=== PATIENT | male | born 2000 | race Caucasian/White ===

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

== ENCOUNTER 2022-12-19 14:41 | Emergency (ER) | payer OTHER ==
[2022-12-19 14:44] VITALS: BP 137/74; PULSE 66; RESP 16
--- NOTE | 2022-12-19 15:16 | ED ---
Skin/Abscess/FB HPI - General Chief complaint: Skin/Abscess/Foreign Body Stated complaint: rash on abdomen Time Seen by Provider: 12/19/22 14:49 Source: patient Mode of arrival: ambulatory Limitations: no limitations - History of Present Illness Initial comments: Patient is a 22-year-old male presenting to the emergency room with complaints of a rash on his right lower abdominal region and a small rash area on his right flank which developed approximately 1 week ago. He reports that itchy in nature and states that when he itches it does burn. He does report that it started out smaller on his abdomen and has grown in size. He has not utilized any medications to help treat the rash. He is attempting to avoid itching the area. He did originally believe that it was due to a change in soaps but reports that despite personal-care product stability the rash persists. He denies any wounds, bites or lesions that precipitated the rash. He denies any rash to any other location, shortness of breath, chest pain, fevers or chills. He denies any other persons in the home with a rash. He has no significant past medical history. - Related Data Home Medications Medication Instructions Recorded Confirmed Sulfamethox-Tmp 800-160Mg [Bactrim 1 tab PO Q12HR 05/25/18 05/25/18 Ds] Previous Rx's Medication Instructions Recorded Mupirocin 2% Oint [Bactroban 2% 1 applic TOPICAL TID #22 gm 05/22/18 Oint] Cephalexin [Keflex] 500 mg PO Q8H 10 Days cap 05/25/18 Sulfamethox-Tmp 800-160Mg [Bactrim 2 tab PO Q12HR 10 Days tab 05/25/18 DS 800-160 mg] Amoxic-Pot Clav 875-125Mg 1 tab PO BID 7 Days #14 tab 11/23/22 [Augmentin 875-125] Nystatin/Triamcin 1 applic TOPICAL BID #30 gram 12/19/22 [Nystatin-Triamcinolone Cream] Allergies Allergy/AdvReac Type Severity Reaction Status Date / Time No Known Allergies Allergy Verified 11/24/22 11:14 Review of Systems ROS Statement: Those systems with pertinent positive or pertinent negative responses have been documented in the HPI. ROS Other: All systems not noted in ROS Statement are negative. Past Medical History Past Medical History: No Reported History History of Any Multi-Drug Resistant Organisms: None Reported Past Surgical History: Adenoidectomy, Tonsillectomy Past Psychological History: No Psychological Hx Reported Past Alcohol Use History: None Reported, Rare Past Drug Use History: Marijuana, None Reported General Exam Limitations: no limitations General appearance: alert, in no apparent distress Head exam: Present: atraumatic, normocephalic, normal inspection Eye exam: Present: normal appearance, PERRL, EOMI. Absent: scleral icterus, conjunctival injection, periorbital swelling ENT exam: Present: normal exam, mucous membranes moist Neck exam: Present: normal inspection, full ROM Respiratory exam: Absent: respiratory distress, accessory muscle use Cardiovascular Exam: Present: regular rate GI/Abdominal exam: Present: soft, normal bowel sounds. Absent: distended, tenderness, guarding, rebound, rigid Extremities exam: Present: normal inspection. Absent: pedal edema, joint swelling Back exam: Present: normal inspection Neurological exam: Present: alert, oriented X3, CN II-XII intact Psychiatric exam: Present: normal affect, normal mood Skin exam: Present: rash (erythematous patch-like rash without vesicles or papules noted, no central clearing, no obvious wound or abscess to right lower abdomen approximately 12 x 7 cm oval shaped additional similar lesion approximately 2.5 x 1.5 cm to right flank) Course Vital Signs 12/19/22 14:43 Pulse Rate 66 Respiratory 16 Rate Blood Pressure 137/74 O2 Sat by Pulse 98 Oximetry Medical Decision Making - Medical Decision Making Was pt. sent in by a medical professional or institution (URIEL Davis, [employer], urgent care, hospital, or intermediate...) When possible be specific @ -No Did you speak to anyone other than the patient for history (EMS, parent, family, police, friend...)? What history was obtained from this source @ -No Did you review nursing and triage notes (agree or disagree)? Why? @ -I reviewed and agree with nursing and triage notes Were old charts reviewed (outside hosp., previous admission, EMS record, old EKG, old radiological studies, urgent care reports/EKG's, intermediate records)? Report findings @ -No old charts were reviewed Differential Diagnosis (chest pain, altered mental status, abdominal pain women, abdominal pain men, vaginal bleeding, weakness, fever, dyspnea, syncope, headache, dizziness, GI bleed, back pain, seizure, CVA, palpatations, mental health, musculoskeletal)? @ -Differential rash: Contact dermatitis, eczema, herpes zoster, urticaria, cellulitis, tinea corpus, allergic reaction this is not meant to be an all-inclusive list. EKG interpreted by me (3pts min.). @ -None done X-rays interpreted by me (1pt min.). @ -None done CT interpreted by me (1pt min.). @ -None done U/S interpreted by me (1pt. min.). @ -None done What testing was considered but not performed or refused? (CT, X-rays, U/S, labs)? Why? @ -None What meds were considered but not given or refused? Why? @ -None Did you discuss the management of the patient with other professionals (professionals i.e. , PA, [employer], lab, RT, psych nurse, clinical social work aide, guide escort, teacher, operations officer, case briefer)? Give summary @ -No Was smoking cessation discussed for >3mins.? @ -No Was critical care preformed (if so, how long)? @ -No Were there social determinants of health that impacted care today? How? (Homelessness, low income, unemployed, alcoholism, drug addiction, transportation, low edu. Level, literacy, decrease access to med. care, alf, rehab)? @ -No Was there de-escalation of care discussed even if they declined (Discuss DNR or withdrawal of care, Hospice)? DNR status @ -No What co-morbidities impacted this encounter? (DM, HTN, Smoking, COPD, CAD, Cancer, CVA, ARF, Chemo, Hep., AIDS, mental health diagnosis, sleep apnea, morbid obesity)? @ -None Was patient admitted / discharged? Hospital course, mention meds given and route, prescriptions, significant lab abnormalities, going to OR and other pertinent info. @ -22-year-old male presenting to the emergency room with complaints of rash to right lower abdomen ongoing for approximately 1 week without any known precipitating factors. Rash is itchy at times with burning sensation when itched. No [id number] treatment for rash. No indication for diagnostic imaging or laboratory studies at this time. Education regarding rash treatment discussed with patient. Concern for fungal versus steroid responsive dermatitis discussed with patient. Advised to keep rash clean and dry. Avoid itching. Will place on topical treatment of nystatin/Trimacolone cream. Questions and concerns regarding rash discussed. No indication for oral medication or antibiotic therapy. Return parameters to the emergency room discussed. Will discharge home in stable condition on topical treatment for right abdominal wall rash advising follow-up with patient's primary care provider. Undiagnosed new problem with uncertain prognosis? @ -No Drug Therapy requiring intensive monitoring for toxicity (Heparin, Nitro, Insulin, Cardizem)? @ -No Were any procedures done? @ -No Diagnosis/symptom? @ -Dermatitis Acute, or Chronic, or Acute on Chronic? @ -Acute Uncomplicated (without systemic symptoms) or Complicated (systemic symptoms)? @ -Uncomplicated Side effects of treatment? @ -No Exacerbation, Progression, or Severe Exacerbation? @ -No Poses a threat to life or bodily function? How? (Chest pain, [place], [place], pneumonia, PE, COPD, DKA, ARF, appy, cholecystitis, CVA, Diverticulitis, Homicidal, Suicidal, threat to staff... and all critical care pts) @ -No. Case discussed with Dr. Becker. Disposition Clinical Impression: Dermatitis Disposition: HOME SELF-CARE Condition: Stable Instructions (If sedation given, give patient instructions): Dermatitis (ED) Additional Instructions: Apply topical cream to affected area twice a day until resolved. Keep skin clean and dry. Avoid soaps and lotions with fragrance or . Please follow-up with your primary care provider. Please return to the Emergency Department if symptoms worsen or any other concerns. Prescriptions: Nystatin/Triamcin [Nystatin-Triamcinolone Cream] 1 applic TOPICAL BID #30 gram Is patient prescribed a controlled substance at d/c from ED?: No Referrals: Walter James MD [Primary Care Provider] - 1-2 days Time of Disposition: 15:22
== END 2022-12-19 15:32 | disposition home or self-care (01) ==
LOC: EC 14:41
DX: L30.9 Dermatitis, unspecified (principal); F12.90 Cannabis use, unspecified, uncomplicated
CPT/HCPCS: 99282